=== PATIENT | female | born 1975 | race American Indian/Alaskan Native ===

== ENCOUNTER 2018-03-31 00:37 | Emergency (ER) | payer OTHER ==
[2015-03-29 10:23] VITALS: BMI 30.5
== END 2018-03-31 10:37 | disposition left against medical advice (07) ==
LOC: ED 00:37
DX: Z02.89 Encounter for other administrative examinations (principal); R10.9 Unspecified abdominal pain

== ENCOUNTER 2018-05-31 11:09 | Emergency (ER) | payer OTHER ==
[2018-05-31 11:09] VITALS: BMI 30.5
[2018-05-31 11:28] VITALS: PULSE 76; O2SAT 98
--- NOTE | 2018-05-31 11:53 | ED PDOC ---
Arrival/HPI <Darien Mendoza - Last Filed: 05/31/18 13:01> - General Historian: Patient - History of Present Illness Narrative History of Present Illness (Text): 05/31/18 12:00 43F w/ pmh HTN, Fibromyalgia presenting w/ 3 weeks complaint of nausea, headache, LUQ abdominal pain. Patient reported that her symptoms have been ongoing over the past 3 weeks and no identifiable triggers identified. She describes a sliding discomfort in her LUQ and is unable to further characterize her discomfort. She stated that she presented to ED today because she is concerned w/ her decreased appetite. Patient also complains of early satiety as well as chills. Denies any chest pain, sob, vomiting, constipation/ diarrhea, urinary discomfort. <Yonathan Pierre - Last Filed: 05/31/18 13:26> - General Chief Complaint: Abdominal Pain Time Seen by Provider: 05/31/18 11:53 Past Medical History - Provider Review Nursing Documentation Reviewed: Yes - Infectious Disease Hx of Infectious Diseases: None - Tetanus Immunization Tetanus Immunization: Unknown - Cardiac Hx Cardiac Disorders: Yes Hx Hypertension: Yes - Pulmonary Hx Respiratory Disorders: No - Neurological Hx Neurological Disorder: No - HEENT Hx HEENT Disorder: No - Renal Hx Renal Disorder: No - Endocrine/Metabolic Hx Endocrine Disorders: No - Hematological/Oncological Hx Blood Disorders: No - Integumentary Hx Dermatological Disorder: No - Musculoskeletal/Rheumatological Hx Musculoskeletal Disorders: Yes - Gastrointestinal Hx Gastrointestinal Disorders: Yes Hx Gall Bladder Disease: Yes - Genitourinary/Gynecological Hx Genitourinary Disorders: No - Psychiatric Hx Psychophysiologic Disorder: Yes Hx Depression: Yes Hx Substance Use: No - Past Surgical History Past Surgical History: No Previous - Surgical History Hx Cholecystectomy: Yes - Anesthesia Hx Anesthesia: Yes Hx Anesthesia Reactions: No Hx Malignant Hyperthermia: No - Suicidal Assessment Feels Threatened In Home Enviroment: No <Yonathan Pierre - Last Filed: 05/31/18 13:26> Family/Social History - Physician Review Nursing Documentation Reviewed: Yes Family/Social History: Unknown Family HX Smoking Status: Never Smoked Hx Alcohol Use: No Hx Substance Use: No Hx Substance Use Treatment: No <Yonathan Pierre - Last Filed: 05/31/18 13:26> Allergies/Home Meds <Darien Mendoza - Last Filed: 05/31/18 13:01> <Yonathan Pierre - Last Filed: 05/31/18 13:26> Allergies/Adverse Reactions: Allergies hydrochlorothiazide Allergy (Verified 05/31/18 11:22) ANAPHYLAXIS losartan Allergy (Verified 05/31/18 11:22) ANAPHYLAXIS Sulfa (Sulfonamide Antibiotics) Allergy (Verified 05/31/18 11:22) ITCHING Home Medications: Home Meds Medication Instructions Recorded Confirmed Doxazosin Mesylate [Cardura Xl] 1 tab PO DAILY 05/31/18 05/31/18 Review of Systems - Physician Review All systems were reviewed & negative as marked: Yes - Review of Systems Constitutional: Fatigue Eyes: Normal ENT: Normal Respiratory: Normal Cardiovascular: Normal Gastrointestinal: Abdominal Pain, Nausea, Appetite Changes. absent: Hematochezia Genitourinary Female: Normal. absent: Dysuria Musculoskeletal: Normal Skin: Normal Neurological: Headache Endocrine: Normal Hemo/Lymphatic: Normal Psychiatric: Normal <Yonathan Pierre - Last Filed: 05/31/18 13:26> Physical Exam Vital Signs Temp Pulse Resp BP Pulse Ox 05/31/18 11:23 98.5 F 76 16 156/92 H 98 05/31/18 11:09 98.5 F 76 16 156/92 H 98 <RejiDarien - Last Filed: 05/31/18 13:01> Vital Signs Temp Pulse Resp BP Pulse Ox 05/31/18 11:23 98.5 F 76 16 156/92 H 98 05/31/18 11:09 98.5 F 76 16 156/92 H 98 Temperature: Afebrile Blood Pressure: Hypertensive Pulse: Regular Respiratory Rate: Normal Appearance: Positive for: Well-Appearing, Non-Toxic, Comfortable Pain Distress: None Mental Status: Positive for: Alert and Oriented X 3 - Systems Exam Head: Present: Atraumatic, Normocephalic Pupils: Present: PERRL Extroacular Muscles: Present: EOMI Conjunctiva: Present: Normal Mouth: Present: Moist Mucous Membranes Neck: Present: Normal Range of Motion Respiratory/Chest: Present: Clear to Auscultation, Good Air Exchange. No: Respiratory Distress, Accessory Muscle Use Cardiovascular: Present: Regular Rate and Rhythm, Murmurs, Normal S1, S2 Abdomen: No: Tenderness, Distention, Peritoneal Signs Back: Present: Normal Inspection Upper Extremity: Present: Normal Inspection. No: Cyanosis, Edema Lower Extremity: Present: Normal Inspection. No: Edema Neurological: Present: GCS=15, CN II-XII Intact, Speech Normal Skin: Present: Warm, Dry, Normal Color. No: Rashes Psychiatric: Present: Alert, Oriented x 3, Normal Insight, Normal Concentration <Pierre,Yonathan - Last Filed: 05/31/18 13:26> Medical Decision Making ED Course and Treatment: 05/31/18 12:19 43 year old female presents to the ED for evaluation of nausea and LUQ abdominal pain since 3 weeks. In agreement with resident note which contains more details about the patient. Patient seen and evaluated with resident. Came up with plan and treatment together. - Lab Interpretations Lab Results: Troponin I < 0.01 ng/mL D 05/31/18 12:15 NT-Pro-B Natriuret Pep 135 pg/mL (0-450) 05/31/18 12:15 Total Bilirubin 0.5 mg/dL (0.2-1.3) 05/31/18 12:15 AST 29 U/L (14-36) 05/31/18 12:15 ALT 17 U/L (7-56) 05/31/18 12:15 Alkaline Phosphatase 60 U/L (38-126) 05/31/18 12:15 Total Protein 8.0 g/dL (5.8-8.3) 05/31/18 12:15 Albumin 4.3 g/dL (3.0-4.8) 05/31/18 12:15 Globulin 3.7 gm/dL 05/31/18 12:15 Albumin/Globulin Ratio 1.2 (1.1-1.8) 05/31/18 12:15 Lipase 48 U/L (23-300) 05/31/18 12:15 Urine Color Yellow (YELLOW) 05/31/18 12:15 Urine Appearance Clear (CLEAR) 05/31/18 12:15 Urine pH 6.0 (4.7-8.0) 05/31/18 12:15 Ur Specific Douglas >= 1.030 (1.005-1.035) 05/31/18 12:15 Urine Protein Negative mg/dL (<30 mg/dL) 05/31/18 12:15 Urine Glucose (UA) Negative mg/dL (NEGATIVE) 05/31/18 12:15 Urine Ketones >=80 mg/dL (NEGATIVE) 05/31/18 12:15 Urine Blood Small (NEGATIVE) H 05/31/18 12:15 Urine Nitrate Negative (NEGATIVE) 05/31/18 12:15 Urine Bilirubin Negative (NEGATIVE) 05/31/18 12:15 Urine Urobilinogen 0.2 E.U./dL (<1 E.U./dL) 05/31/18 12:15 Ur Leukocyte Esterase Small Garret/uL (NEGATIVE) H 05/31/18 12:15 Urine RBC 10 - 15 /hpf (0-2) H 05/31/18 12:15 Urine WBC 15 - 20 /hpf (0-6) H 05/31/18 12:15 Ur Epithelial Cells Many /hpf (0-5) H 05/31/18 12:15 Amorphous Sediment Few /hpf (NONE) 05/31/18 12:15 Urine Bacteria Many /hpf (NONE) 05/31/18 12:15 Urine Other Fiber /hpf 05/31/18 12:15 - RAD Interpretation Radiology Orders: 05/31/18 11:58 CXR [CHEST PORTABLE] [RAD] Stat - Medication Orders Current Medication Orders: Discontinued Medications Al Hydrox/Mg Hydrox/Simethicone (Maalox Plus 30 Ml) 30 ml PO STAT STA Stop: 05/31/18 12:00 Last Admin: 05/31/18 12:16 Dose: 30 ml Sodium Chloride (Sodium Chloride 0.9%) 1,000 mls @ 999 mls/hr IV .Q1H1M STA Stop: 05/31/18 12:59 Last Admin: 05/31/18 12:15 Dose: 999 mls/hr eMAR Start Stop Document 05/31/18 12:15 SRE (Rec: 05/31/18 12:16 SRE [id number]) Intravenous Solution Start Date 05/31/18 Start Time 12:16 End Date 05/31/18 End time 13:15 Total Infusion Time 59 Metoclopramide HCl (Reglan) 10 mg IVP STAT STA Stop: 05/31/18 12:00 Last Admin: 05/31/18 12:16 Dose: Not Given Non-Admin Reason: Patient Refused <Darien Mendoza - Last Filed: 05/31/18 13:01> ED Course and Treatment: 05/31/18 12:03 43F w/ vague abdominal discomfort w/ associated nausea and decreased appetite Most likely gerd r/o acs r/o pancreatitis r/o UTI Eval for diaphgragmatic hernia Plan: CBC/CMP EKG TROP BNP LIPASE UA pepcid reglan IVF Progress Notes 05/31/18 13:20 CBC/CMP WNL EKG NSR 74 BPM - normoaxis - no ST/T changes appreciated Trop/ BNP wnl Lipase wnl CXR wnl UA w/ many bacteria + pyuria; small leuk esterase + many squamous ep; Most likely asymptomatic colonization/ dirty catch - given lack of symptoms; will culture Patient reported that she has an appt to follow up with her GI doctor tommorrow Patient will follow up with her GI tomorrow Discharge home <Yonathan Pierre - Last Filed: 05/31/18 13:26> - 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 MD/ has examined the patient and agrees with the treatment plan. - Scribe Statement The provider has reviewed the documentation as recorded by the Scribe Maria Esther Rao. All medical record entries made by the Wesleyibe were at my direction and personally dictated by me. I have reviewed the chart and agree that the record accurately reflects my personal performance of the history, physical exam, medical decision making, and the department course for this patient. I have also personally directed, reviewed, and agree with the discharge instructions and disposition. <Darien Mendoza - Last Filed: 05/31/18 13:01> Disposition/Present on Arrival <Darien Mendoza - Last Filed: 05/31/18 13:01> - Present on Arrival Any Indicators Present on Arrival: No History of DVT/PE: No History of Uncontrolled Diabetes: No Urinary Catheter: No History of Decub. Ulcer: No History Surgical Site Infection Following: None - Disposition Have Diagnosis and Disposition been Completed?: Yes Disposition Time: 13:18 Patient Plan: Discharge <Yonathan Pierre - Last Filed: 05/31/18 13:26> - Disposition Diagnosis: Nausea, Gastritis, Dizziness Patient Problems: Current Active Problems Problem Status Onset Dizziness Acute Gastritis Acute Nausea Acute Condition: GOOD Discharge Instructions (ExitCare): Nausea and Vomiting, Adult (DC), Gastritis (DC) Additional Instructions: PLEASE FOLLOW UP WITH YOUR PRIMARY WITHIN 1 DAY OF DISCHARGE PLEASE FOLLOW UP WITH YOUR GI DOCTOR WITHIN 1 DAY OF DISCHARGE WENDI WARD, thank you for letting us take care of you today. Your provider was Darien eMndoza DO // Yonathan Pierre DO and you were treated for nausea/ dizziness. The emergency medical care you received today was directed at your acute symptoms. If you were prescribed any medication, please fill it and take as directed. It may take several days for your symptoms to resolve. Return to the Emergency Department if your symptoms worsen, do not improve, or if you have any other problems. Please contact your doctor or call one of the physicians/clinics you have been referred to that are listed on the Patient Visit Information form that is included in your discharge packet. Bring any paperwork you were given at discharge with you along with any medications you are taking to your follow up visit. Our treatment cannot replace ongoing medical care by a primary care provider outside of the emergency department. Thank you for allowing the [facility] team to be part of your care today. If you had an X-Ray or CT scan: A Radiologist will review the ED reading if any change in treatment is needed we will contact you. If you had a blood, urine, or wound culture: It will take several days for the results, if any change in treatment is needed we will contact you. If you had an STI test: It will take 48 hours for the results. Please call after 1 week if you have not heard back. Referrals: PCP,NO [Primary Care Provider] - Follow up with primary Forms: [employer] (Algerian)
[2018-05-31] MEDS ORDERED: Alum-Mag Hydrox-Simethicone Susp (30 mL) PO STA (11:59)
[2018-05-31] MEDS ORDERED: Sodium Chloride 0.9% 1,000 ML IV STA (11:59)
[2018-05-31 12:39] LABS: BASO # 0.01 K/mm3 (0.0-2.0); BASO % 0.2 % (0.0-3.0); EOS # 0.1 (0.0-0.7); EOS % 0.9 % (1.5-5.0); HEMOGLOBIN 13.1 g/dL (12.0-16.0); LYMPH # 1.5 (1.2-3.4); LYMPH % 28.7 % (22.0-35.0); MEAN CELL VOLUME 92.9 fl (80.0-105.0); MEAN CORPUSCULAR HEMOGLOBIN 31.9 pg (25.0-35.0); MEAN CORPUSCULAR HGB CONC 34.3 g/dl (31.0-37.0); MEAN PLATELET VOLUME 10.1 fl (7.0-11.0); MONO # 0.2 (0.1-0.6); MONO % 4.3 % (1.0-6.0); RBC 4.11 10^6/uL (3.5-6.1); RED CELL DISTRIBUTION WIDTH 12.6 % (11.5-14.5); WHITE BLOOD COUNT 5.3 10^3/uL (4.5-11.0)
[2018-05-31 12:44] LABS: URINE BILIRUBIN NEGATIVE (NEGATIVE); URINE BLOOD SMALL (NEGATIVE); URINE GLUCOSE (UA) NEGATIVE (NEGATIVE); URINE LEUKOCYTE ESTERASE SMALL Leu/uL (NEGATIVE); URINE PROTEIN NEGATIVE mg/dL (<30 mg/dL); URINE UROBILINOGEN 0.2 E.U./dL (<1 E.U./dL)
[2018-05-31 12:45] LABS: ALB/GLOB RATIO 1.2 (1.1-1.8); ALBUMIN 4.3 g/dL (3.0-4.8); ALT/SGPT 17 U/L (7-56); AST/SGOT 29 U/L (14-36); BLOOD UREA NITROGEN 10 mg/dL (7-21); CALCIUM 9.2 mg/dL (8.4-10.5); GFR NON-AFRICAN AMERICAN > 60; LIPASE 48 U/L (23-300)
[2018-05-31 12:53] LABS: URINE APPEARANCE CLEAR (CLEAR); URINE COLOR YELLOW (YELLOW)
[2018-05-31 12:56] LABS: URINE AMORPHOUS SEDIMENT FEW /hpf; URINE BACTERIA MANY /hpf; URINE EPITHELIAL CELLS MANY /hpf (0-5); URINE WBC 15 - 20 /hpf (0-6)
[2018-05-31 12:57] LABS: B-TYPE NATRIURETIC PEPTIDE 135 pg/mL (0-450); TROPONIN I < 0.01 ng/mL
--- NOTE | 2018-05-31 13:10 | RAD ---
Date of service: 05/31/2018 HISTORY: c/o LUQ pain COMPARISON: 03/29/2015 FINDINGS: LUNGS: No active pulmonary disease. PLEURA: No significant pleural effusion identified, no pneumothorax apparent. CARDIOVASCULAR: No aortic atherosclerotic calcification present. Normal cardiac size. No pulmonary vascular congestion. OSSEOUS STRUCTURES: No significant abnormalities. VISUALIZED UPPER ABDOMEN: Normal. OTHER FINDINGS: None. IMPRESSION: No active disease.
[2018-05-31 13:35] VITALS: BP 140/75; RESP 18; TEMP 98.1
--- NOTE | 2018-05-31 18:09 | CARD ---
APPROVED REPORT Date of service: 05/31/2018 EKG Measurement Heart [id number] <Conclusion> Normal sinus rhythm Normal ECG
== END 2018-05-31 13:36 | disposition home or self-care (01) ==
LOC: ED 11:09
DX: K29.70 Gastritis, unspecified, without bleeding (principal); R42 Dizziness and giddiness; I10 Essential (primary) hypertension; M79.7 Fibromyalgia
CPT/HCPCS: 71045; 80053; 81001; 81025; 83690; 83880; 84484; 85025; 87086; 93005; 96360; 99283; J7030